=== PATIENT | female | born 1985 | race Two or more races ===

== ENCOUNTER 2023-11-11 10:48 | Emergency (ER) | payer OTHER ==
[~2023-11-11] VITALS: Ht 165.1 cm; Wt 90.9 kg
[2023-11-11 10:56] VITALS: BP 116/60; PULSE 85; RESP 12; TEMP 98.4
[2023-11-11 11:08] LABS: COVID AG,FIA SOURCE NASAL SWAB
[2023-11-11 11:47] LABS: SARS-COV2 (COVID) ANTIGEN,FIA Negative (Negative)
[2023-11-11 11:48] LABS: INFLUENZA TYPE A NEGATIVE FOR TYPE A (NEGATIVE); INFLUENZA TYPE B NEGATIVE FOR TYPE B (NEGATIVE)
[2023-11-11 12:34] LABS: APPEARANCE,URINE CLEAR (CLEAR); BILIRUBIN,URINE NEGATIVE (NEGATIVE); COLOR,URINE LIGHT YELLOW (YELLOW); GLUCOSE, URINE (UA) 70-100 mg/dL (NEGATIVE); KETONES,URINE NEGATIVE (NEGATIVE); LEUKOCYTE ESTERASE ,URINE NEGATIVE (NEGATIVE); NITRATE,URINE NEGATIVE (NEGATIVE); OCCULT BLOOD,URINE NEGATIVE (NEGATIVE); PH,URINE 7.5 (5.0-8.0); PROTEIN,URINE TRACE mg/dL (NEGATIVE); SPECIFIC GRAVITIY, URINE 1.023 (1.003-1.030)
[2023-11-11 12:47] LABS: BACTERIA,URINE None Seen /HPF (None Seen); HCG,QUAL URINE NEGATIVE (NEGATIVE); RBC,URINE None Seen /HPF (0-2); SQUAMOUS EPITHELIAL CELL,UR Few /LPF (None Seen); WBC,URINE None Seen /HPF (0-5)
[2023-11-11] MEDS ORDERED: AMOX TR/POT CLAV 875 MG/125 MG TABLET PO ONE (13:15)
[2023-11-11] MEDS ORDERED: AMOX1TAB16 PO (13:33)
== END 2023-11-11 13:44 | disposition home or self-care (01) ==
LOC: EMS 10:55
DX: O24.439 Gestational diabetes mellitus in the puerperium, unspecified control (principal); J06.9 Acute upper respiratory infection, unspecified; H73.22 Unspecified myringitis, left ear; Z20.822 Contact with and (suspected) exposure to COVID-19
CPT/HCPCS: 81001; 84703; 87804; 99283